=== PATIENT | female | born 1950 | race Caucasian/White ===

== ENCOUNTER 2025-01-20 13:57 | Outpatient (AMB) | payer OTHER, SELFPAY ==
--- OUTSIDE RECORDS SUMMARY | 2025-01-19 13:30 | XMS_ITS | Encounter Summary ---
Author Organization [facility] Address [address] [place] [address] Care Team Providers Care Animal Skinner Name Role Phone Eve German ASSISTANT WOMENS VOLLEYBALL COACH Primary Care Provider [phone] Encounter Details Date Type Department Care Team (Late st Contact Info) Description 01/19/2025 1:30 PM EST [facility] [address] [place] [address] Breanna Jaquez PTA Social History Tobacco Use Types Packs/Day Years Used Date Smoking Tobacco: Never Smokeless Tobacco: Never Comments:Never smoked tobacc o Alcohol Use Standard Drinks/Week Comments Not Currently 0 (1 standard drink = 0.6 oz pur e alcohol) Hx of alcohol use. Education Answer Date Recorded What is the highest level of school you have completed or the highest degree you have received? High school graduate 08/08/2024 Comments Unknown Sex and Gender Information Value Date Recorded Sex Assigned at Not on file Legal Sex Female 5:11 PM EST Gender Identity Not on file Sexual Orientation Not on file documented as of this encounter Progress Notes * Breanna Jaquez PTA - 01/19/2025 1:30 PM EST Par engaged in staff led exercise group to improve quality of life through movement & social interaction with peers. Focus on strengthening and balance act to reduce risk for falls documented in this encounter Plan of Treatment Upcoming Encounters Date Type Department Care Team (Late st Contact Info) Description 01/27/2025 10:00 AM EST PACE Home Care / P[facility] Home Visit [facility] [place] [facility] [address] [place] [phone] Sisi [place] 02/03/2025 10:00 AM EST PACE Home Care / PACE Home Visit Vivien [facility] [place] [facility] [address] [place] [phone] Sisi Janet 02/10/2025 10:00 AM EST PACE Home Care / PACE Home Visit Vivien [facility] [place] [facility] [address] [place] [phone] Sisi [place] 02/12/2025 1:00 PM EST Clinical Support Vivien DAVENPORT MA [address] [place] [phone] 02/17/2025 10:00 AM EST PACE Home Care / PACE Home Visit Vivien [facility] [place] [facility] [address] [place] [phone] Sisi [place] 02/19/2025 10:10 AM EST Clinical Support Vivien DAVENPORT MA [address] [place] [phone] 02/24/2025 10:00 AM EST PACE Home Care / PACE Home Visit Vivien [facility] [place] [facility] [address] [place] [phone] Sisi [place] 03/03/2025 10:00 AM EST PACE Home Care / PACE Home Visit Vivien [facility] [place] [facility] [address] [place] [phone] Sisi [place] 03/10/2025 10:00 AM EST PACE Home Care / PACE Home Visit Vivien [facility] [place] [facility] [address] [place] [phone] Janet Laird 03/17/2025 10:00 AM EST PACE Home Care / PACE Home Visit Vivien [facility] [place] [facility] [address] [place] [address] NeetajessicaJanet 05/14/2025 9:00 AM EST Clinical Support Vivien DAVENPORT [place] [address] [place] [address] documented as of this encounter Visit Diagnoses Not on filedocumented in this encounter Additional Health Concerns Assessment Noted Time PHQ-9 Depression Total Score: 3 09/10/19 10:35 AM EDT documented as of this encounter Care Teams Animal Skinner Relationship Specialty Start Date End Date Eve German NP [address] [address] PCP - General Family Medicine 04/12/24 documented as of this encounter
--- OUTSIDE RECORDS SUMMARY | 2025-01-20 14:10 | XMS_ITS | Encounter Summary ---
Author Organization [facility] Address [address] [place] [address] Care Team Providers Care Co Teacher Name Role Phone Eve German LONG DISTANCE OPERATOR Primary Care Provider [phone] Reason for Visit * Consultation (Routine) - Authorized Specialty Diagnoses / Procedures Referred By Giuseppe zepeda Referred To Contact Neurology Diagnoses Hyponatremia Eve German NP 200 [facility] [address] [place] [address] Phone: tel: fax: [facility] [address] Phone: tel: Referral ID Status Reason Start Date Expiration Date Visits Requested Visits Authorized [id number] Authorized Specialty Services Required 11/14/2024 11/14/2025 1 1 Encounter Details Date Type Department Care Team (Late st Contact Info) Description 01/20/2025 2:10 PM EST PACE External Visit [facility] [place] [address] [place] [address] Arrived Social History Tobacco Use Types Packs/Day Years [...] on file documented as of this encounter Plan of Treatment Upcoming Encounters Date Type Department Care Team (Late st Contact Info) Description 01/27/2025 10:00 AM EST PACE Home Care / PACE Home Visit Vivien [facility] [place] [facility] [address] [place] [phone] Faustino Lairdah 02/03/2025 10:00 AM EST PACE Home Care / PACE Home Visit Vivien [facility] [place] [facility] [address] [place] [phone] Faustnio Lairdah 02/10/2025 10:00 AM EST PACE Home Care / PACE Home Visit Vivien [facility] [place] [facility] [address] [place] [phone] Sisi Janet 02/12/2025 1:00 PM EST Clinical Support Vivien DAVENPORT [place] [address] [place] [phone] 02/17/2025 10:00 AM EST PACE Home Care / PACE Home Visit Vivien [facility] [place] [facility] [address] [place] [phone] Janet Laird 02/19/2025 10:10 AM EST Clinical Support Vivien DAVENPORT [place] [address] [place] [phone] 02/24/2025 10:00 AM EST PACE Home Care / PACE Home Visit [facility] [address] [place] [phone] Sisi Janet 03/03/2025 10:00 AM EST PACE Home Care / PACE Home Visit Vivien [facility] [place] [facility] [address] [place] [phone] Sisi Janet 03/10/2025 10:00 AM EST PACE Home Care / PACE Home Visit Vivien [facility] [place] [facility] [address] [place] [address] Janet Laird 03/17/2025 10:00 AM EST PACE Home Care / PACE Home Visit Vivien [facility] [place] [facility] [address] [place] [phone] Jante Laird 05/14/2025 9:00 AM EST Clinical Support Vivien DAVENPORT [place] [address] [place] [address] documented as of this encounter Visit Diagnoses Not on filedocumented in this encounter Orders Outpatient Referral Count Last Ordered Date Fir st Ordered Date AMB REFERRAL TO NEUROLOGY 01/20/2025 documented in this encounter Additional Health Concerns Assessment Noted Time PHQ-9 Depression Total Score: 3 09/10/19 10:35 AM EDT documented as of this encounter Care Teams Co Teacher Relationship Specialty Start Date End Date Eve German NP [address] [place] [address] 1 [place] [address] PCP - General Family Medicine 04/12/24 documented as of this encounter
--- NOTE | 2025-01-20 14:18 | MHC.OFFVIS ---
Intake Visit Reasons: Hyponatremia HPI Comments Details: The patient is a 74-year-old female presenting with a follow-up for seizure management and neurological evaluation. 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 The seizure was atypical, exhibiting confusion and inability to rise from a position, as opposed to overt convulsions. Her antiepileptic treatment regimen appears effective in managing seizure activity, with minimal occurrences of minor seizures since initiation. She also reports cognitive issues, which have become more evident with advancing age, and are partially attributed to historical brain trauma evident on MRI. There is an associated history of a childhood clavicle fracture requiring surgical intervention. The patient recently experienced fluctuations in sodium levels, likely due to her antiepileptic medication. While her serum sodium had decreased, recent laboratory values indicate a normalization back to 140 mmol/L. Review of Systems Narrative Constitutional:?No fever, chills, fatigue, weight loss, or night sweats. HEENT:?No headache, vision changes, hearing loss, nasal congestion, sore throat. Cardiovascular:?No chest pain, palpitations, orthopnea, PND, or leg swelling. Respiratory:?No cough, shortness of breath, wheezing, or hemoptysis. Gastrointestinal:?No nausea, vomiting, abdominal pain, diarrhea, or constipation. Genitourinary:? Complain of frequent urination. Musculoskeletal:?No joint pain, stiffness, weakness, or muscle aches. Neurological:? Complain of confusion, memory problems, and seizures. Psychiatric:?No anxiety, depression, mood swings, sleep disturbance, or hallucinations. Endocrine:?No heat/cold intolerance, polydipsia, polyuria, or hair/skin changes. Hematologic/Lymphatic:?No easy bruising, bleeding, or lymphadenopathy. Integumentary (Skin):?No rash, lesions, itching, or color changes. Allergic/Immunologic:?No seasonal allergies, hives, or recurrent infections. Physical Exam Neuro Other: Mental Status: She is alert and awake able to answer questions but could not tell me where she lived other than the city. She did not know where she was and what floor she was on. Cranial Nerves: CN II: Visual baltazar full to confrontation, visual acuity intact. CN III, IV, : Pupils equal, round, reactive to light and accommodation. Extraocular movements are normal. CN V: Facial sensation is normal. CN VII: Facial movements symmetrical. CN VIII: Hearing intact to bedside conversation is normal. CN IX, X: Palate elevates symmetrically. CN XI: Shoulder shrug and head turn symmetrical. CN XII: Tongue midline without atrophy or fasciculations. Motor: Slow and cautious with a walker. Extrapyramidal: Full facial expressions and blinking. No rigidity. Movements are appropriate with no tremor or abnormality. Speech: Normal; no dysarthria or tremor. Assessment & Plan Assessment & Plan (1) Seizure disorder: Comment: MRI brain WO at [facility] in 2018: Chronic b/l paramedian parietal area encephalomalacia Code(s): G40.909 - Epilepsy, unspecified, not intractable, without status epilepticus Category: Medical (2) Encephalomalacia on imaging study: Code(s): G93.89 - Other specified disorders of brain Category: Medical (3) Chronic static encephalopathy: Code(s): G93.49 - Other encephalopathy Category: Medical Plan Impression: 1. 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 Distinct area of bilateral paramedian or parasagittal biparietal encephalomalacia, probably from contusion. 3. Seizure disorder, probably comprising complex partial seizures 4. 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 Continue oxcarbamazepine 600 mg twice a day 2. EEG 3. MRI brain WO to r/o NPH type pathology Orders: Orders EEG Routine Today G40.909 - Epilepsy, unspecified, not intractable, without status epilepticus Basic Metabolic Panel Today G40.909 - Epilepsy, unspecified, not intractable, without status epilepticus MR head/brain wo con Today G40.909 - Epilepsy, unspecified, not intractable, without status epilepticus, G93.89 - Other specified disorders of brain Coding Level of Care Code New Pt Level 4 (48838) Global (70624) Diagnoses Seizure disorder G40.909 Encephalomalacia on imaging study G93.89 Chronic static encephalopathy G93.49 Time Spent (min) 45
--- OUTSIDE RECORDS SUMMARY | 2025-01-20 15:32 | XMS_ITS | Patient Health Record ---
Author Organization [facility] [place] Address [address] [facility] [address] [place] [address] Support Name Relationship Address Phone MARIUM CLAY Guarantor Unknown [phone] Reason For Referral No Information Plan Of Treatment No Information Insurance Providers Payer Name Payer Address Payer Phone Subscriber Number Group Number Insured Name Patient Relationship to Insured Coverage Start Date Coverage End Date A [employer] [address] [place] [address] [id number] MARIUM CLAY Self - patient is the insured [employer] [address] [place] [address] [id number] MARIUM CLAY Self - patient is the insured
--- OUTSIDE RECORDS SUMMARY | 2025-01-20 15:32 | XMS_ITS | Encounter Summary ---
Author Organization [facility] Address [address] [place] [address] Care Team Providers Care Manager Process Name Role Phone Eve German VICE PRESIDENT TAX Primary Care Provider [phone] Encounter Details Date Type Department Care Team (Late st Contact Info) Description 07/22/2024 Health Home Core Service [facility] [place] [facility] [address] [place] [phone] Marian Savage RN Social History Tobacco Use Types Packs/Day Years Used Date Smoking Tobacco: Never Comments:Never smoked tobacc o Alcohol Use Standard Drinks/Week Comments Not Currently 0 (1 standard drink = 0.6 oz pur e alcohol) Hx of alcohol use. Comments Unknown Sex and Gender Information Value [...] Care / PACE Home Visit Vivien DAVENPORT [facility] [address] [place] [phone] Janet Laird 02/03/2025 10:00 AM EST PACE Home Care / PACE Home Visit Vivien DAV[facility]PORT [facility] [address] [place] [phone] [facility] 02/10/2025 10:00 AM EST PACE Home Care / PACE Home Visit Vivien DAV[facility] [place] [facility] [address] [place] [phone] [facility] 02/12/2025 1:00 PM EST Clinical Support Vivien DAVENPORT MA [address] [place] [phone] 02/17/2025 10:00 AM EST PACE Home Care / PACE Home Visit Vivien [facility] [place] [facility] [address] [place] [phone] [facility] 02/19/2025 10:10 AM EST Clinical Support Vivien DAVENPORT MA [address] [place] [phone] 02/24/2025 10:00 AM EST PACE Home Care / PACE Home Visit Vivien [facility] [place] [facility] [address] [place] [phone] [facility] 03/03/2025 10:00 AM EST PACE Home Care / PACE Home Visit Vivien [facility] [place] [facility] [address] [place] [phone] [facility] 03/10/2025 10:00 AM EST PACE Home Care / PACE Home Visit Vivien [facility] [place] [facility] [address] [place] [phone] [facility] 03/17/2025 10:00 AM EST PACE Home Care / PACE Home Visit Vivien [facility] [place] [facility] [address] [place] [phone] [facility] 05/14/2025 9:00 AM EST Clinical Support Vivien DAVENPORT MA [address] [place] [phone] documented as of this encounter Visit Diagnoses Not on filedocumented in this encounter Care Teams Manager Process Relationship Specialty Start Date End Date Eve German NP [address] [address] PCP - General Family Medicine 04/12/24 documented as of this encounter
--- OUTSIDE RECORDS SUMMARY | 2025-01-20 15:32 | XMS_ITS ---
Author Organization [facility] [address] [facility] Address [address] [place] [address] Phone Care Team Providers Care Bone Char Kiln Tender Name Role Phone Eve German ACIDIZER Primary Care Provider [phone] [facility] Status:Enrolled (Active) Start date:05/10/2024 Related program episode:Program of All-Inclusive Care for the Elderly (Active) Case Team Name Relationship Phone Eve German ACIDIZER(Responsible Staff) Nurse Prac titioner [phone] Continued Care and Services Coordination
--- OUTSIDE RECORDS SUMMARY | 2025-01-20 15:32 | XMS_ITS ---
Author Organization [facility] [address] [facility] Address [address] [place] [address] Phone Care Team Providers Care Nanotechnology Engineering Technologist Name Role Phone Eve German REPRODUCTIVE ENDOCRINOLOGIST Primary Care Provider [phone] Program of All-Inclusive Care for the Elderly Status:Enrolled (Active) Start date:11/10/2022 Enrollment date:11/10/2022 Related social drivers of health:Housing Instability, Financial Risk, Transportation, Social Isolation, Food Risk Related service episodes:[facility] (Active) Overview This episode will track PACE documentation. Case Team Name Relationship Phone Anais Guan Recreational Therapist Carlota Royal RN Cartography Professor Janet Worthy RN Cartography Professor Francois Gonzalez OT Occupational Therapist Gregory Santoyo RD Dietitian Robert Alcaraz PT Physical Therapist Hunter Sahu WIDE AREA NETWORK ENGINEER R&D Engineer Meme Lane RN Cartography Professor Aziza Fitzgerald R&D Engineer Christelle Mancia [facility] R&D Engineer Arnold Santos Spiritual Care Anne De Santiago OT Occupational Therapist Enma Duckworth TIE UP WORKER R&D Engineer Sj Moser PT Physical Therapist Yenni Coombs RN Registered Nurse Tess Saenz MD Primary Care Provider [phone] Continued Care and Services Coordination
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
--- OUTSIDE RECORDS SUMMARY | 2025-01-20 15:33 | XMS_ITS | Encounter Summary ---
Author Organization [facility] Address [address] [place] [address] Care Team Providers Care Biomedical Equipment Specialist Name Role Phone Eve German MACHINING SUPERVISOR Primary Care Provider [phone] Encounter Details Date Type Department Care Team (Late st Contact Info) Description 03/21/2024 Telephone Gastroenterology - [address] [place] [address] Keiry Flores MA Social History Tobacco Use Types Packs/Day Years Used Date Smoking Tobacco: Never Alcohol Use Standard Drinks/Week Comments Not Currently 0 (1 standard drink = 0.6 oz pur e alcohol) Comments Unknown Sex and Gender Information Value Date Recorded Sex Assigned at Not on file Legal Sex Female 5:11 PM EST Gender Identity Not on file Sexual Orientation Not on file documented as of this encounter Progress Notes * Keiry Flores MA - 03/21/2024 9:25 AM EST Pt's called with the name of pharmacy : [facility]: [phone], for her mesalamine 90 day supply documented in this encounter Plan of Treatment Upcoming Encounters Date Type Department Care Team (Late st Contact Info) Description 01/27/2025 10:00 AM EST PACE Home Care / PACE Home Visit Vivien [facility] [place] [facility] [address] [place] [address] Sisi [place] 02/03/2025 10:00 AM EST PACE Home Care / PACE Home Visit Vivien [facility] [place] [facility] [address] [place] [address] Sisi [place] 02/10/2025 10:00 AM EST PACE Home Care / PACE Home Visit Vivien [facility] [place] [facility] [address] [place] [address] Sisi [place] 02/12/2025 1:00 PM EST Clinical Support Vivien DAVENPORT [place] [address] [place] [address] 02/17/2025 10:00 AM EST PACE Home Care / PACE Home Visit Vivien [facility] [place] [facility] [address] [place] [phone] Sisi [place] 02/19/2025 10:10 AM EST Clinical Support Vivien DAVENPORT [place] [address] [place] [address] 02/24/2025 10:00 AM EST PACE Home Care / PACE Home Visit Vivien [facility] [place] [facility] [address] [place] [address] Sisi [place] 03/03/2025 10:00 AM EST PACE Home Care / PACE Home Visit Vivien [facility] [place] [facility] [address] [place] [address] Sisi [place] 03/10/2025 10:00 AM EST PACE Home Care / P[facility] Home Visit [facility] [place] [facility] [address] [place] [phone] Sisi [place] 03/17/2025 10:00 AM EST PACE Home Care / P[facility] Home Visit [facility] [place] [facility] [address] [place] [phone] Sisi Janet 05/14/2025 9:00 AM EST Clinical Support [facility] [address] [place] [address] documented as of this encounter Visit Diagnoses Not on filedocumented in this encounter Care Teams Biomedical Equipment Specialist Relationship Specialty Start Date End Date Eve German NP [address] [address] PCP - General Family Medicine 04/12/24 documented as of this encounter
--- OUTSIDE RECORDS SUMMARY | 2025-01-20 15:33 | XMS_ITS | Clinical Summary ---
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 Atrium Left atrium cavity size is normal. Right Atrium Right atrium cavity is normal. IVC/SVC Inferior vena cava structure is normal. RA pressures is estimated to be 3 mmHg (IVC diameter <21 mm and decreases >50% during inspiration). Mitral Valve The leaflets are mildly thickened. There is mild annular calcification. There is trace regurgitation. There is no evidence of mitral valve stenosis. Tricuspid Valve Tricuspid valve structure is normal. There is trace regurgitation. The right ventricular systolic pressure is normal. Aortic Valve The aortic valve is trileaflet. The leaflets are mildly thickened. There is no regurgitation or stenosis. Pulmonic Valve There is no regurgitation or stenosis. Ascending Aorta The ascending aorta is (3.6 cm). Pericardium Pericardium appears normal. There is no pericardial effusion. Study Details Overall the study quality was adequate. us Christiano German NP CV ECHO PROCEDURES Final Resu lt * JOSE SCREENING DIGITAL (09/25/2023 2:50 PM EDT) Anatomical Region Laterality Modality Mammography 09/25/2023 1:44 PM EDT Narrative 09/25/2023 2:50 PM EDT [facility] Diagnostic Imaging Department [address] [place] [id number] Patient: OBEDDENAE D.O.B./Age/Sex: 1950 - 73 - F Unit#: [id number] Location/Status: SPDIMAM/REG CLI Mnemonic/Ordering Site: [facility] Ordering Physician: MAKAYLA SAUCEDO MD Jose Screening Digital - 09/25/23 - [id number] Report Status:Signed EXAM: [facility] Screening Digital EXAM DATE AND TIME: 09/25/2023 2:05 PM HISTORY: Screening. COMPARISON: 11/08/21, 12/05/18, 04/23/17 ([facility], [place], [place]) TECHNIQUE: Bilateral digital breast tomosynthesis was performed in the CC and MLO projections. Computer aided detection with Spotlight.fm 3D 3.1 was employed. TISSUE DENSITY: b. There are scattered areas of fibroglandular density. FINDINGS: Finding and coarse heterogeneous microcalcifications are scattered and occur in groups bilaterally, showing no significant change. No suspicious masses are seen. There is no architectural distortion. Vascular calcification is present. The skin is unremarkable. IMPRESSION: Stable mammographic appearance of the breasts. No evidence of malignancy is seen. A negative mammogram in the presence of a clinically suspicious palpable abnormality does not preclude the possibility of malignancy or alter the indications for biopsy. BI-RADS: Category 2: Benign RECOMMENDATION(S): 1: Routine screening mammogram BILATERAL in 1 year. Dictating Physician: ANALI CHANDLER MD Electronically Signed by: ANALI CHANDLER MD Dic Date/Time: 09/25/23 1449 Sign date/Time: 09/25/23 1450 Procedure Note Anali Chandler MD - 12/26/2023 [facility] Diagnostic Imaging Department [address] [place] [address] Patient: DENAE CLAY./Age/Sex: 1950 - 73 - F Unit#: [id number] Location/Status: SPDIMAM/REG CLI Mnemonic/Ordering Site: [facility] Ordering Physician: MAKAYLA SAUCEDO MD [facility] Screening Digital - 09/25/23 - [id number] Report Status:Signed EXAM: [facility] Screening Digital EXAM DATE AND TIME: 09/25/2023 2:05 PM HISTORY: Screening. COMPARISON: 11/08/21, 12/05/18, 04/23/17 ([place], [place]) TECHNIQUE: Bilateral digital breast tomosynthesis was performed in the CCand MLO projections. Computer aided detection with Spotlight.fm 3D 3.1was employed. TISSUE DENSITY: b. There are scattered areas of fibroglandular density. FINDINGS: Finding and coarse heterogeneous microcalcifications are scattered andoccur in groups bilaterally, showing no significant change. No suspicious massesare seen. There is no architectural distortion. Vascular calcification is present. The skin is unremarkable. IMPRESSION: Stable mammographic appearance of the breasts. No evidence of malignancyis seen. A negative mammogram in the presence of a clinically suspicious palpable abnormality does not preclude the possibility of malignancy or alter the indications for biopsy. BI-RADS: Category 2: Benign RECOMMENDATION(S): 1: Routine screening mammogram BILATERAL in 1 year. Dictating Physician: ANALI CHANDLER MD Electronically Signed by: ANALI CHANDLER MD Dic Date/Time: 09/25/23 1449 Sign date/Time: 09/25/23 1450 Makayla Saucedo MD IMG BI PROCEDURES Final Re sult * Lipid panel (09/03/2023) LDL/HDL Ratio 3 <=5 Triglycerides 96 <=150 mg/dL Cholesterol 174 <=200 mg/dL HDL 70 >=50 mg/dL LDL Cholesterol 85 <=100 mg/dL Blood Venous blood specimen / Unknown us Historical Provider LAB BLOOD ORDERABLES Teena l Result from Last 3 Months or Most Recently Relevant to Health Maintenance Insurance [employer] * Guarantor: PACE Account Type Relation to Patient Date of Phone Billing Address PACE DAVID [address] HEALTH Advance Directives Documents on File Type Date Recorded 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 Advance Directives and Living Will 12/17/2024 9:31 AM 12/09/2024 HEALTH CAR E PROXY Advance Directives and Living Will 04/02/2024 3:18 PM ADV DIR-Healthcare Proxy [id number] Advance Directives and Living Will 04/02/2024 3:18 PM ADV DIR-MOLST [id number] Health Care Decision (hx) 01/24/2023 HEALTH CARE PROXY Health Care Decision (hx) 01/24/2023 HEALTH CARE PROXY Health Care Decision (hx) 12/22/2020 ADVANCE DIRECTIVE Health Care Decision (hx) 12/22/2020 ADVANCE DIRECTIVE Health Care Decision (hx) 12/22/2020 ADVANCE DIRECTIVE Health Care Decision (hx) 12/17/2020 ADVANCE DIRECTIVE Health Care Decision (hx) 12/17/2020 ADVANCE DIRECTIVE Health Care Decision (hx) 12/17/2020 ADVANCE DIRECTIVE * Full Code - Confirmed (Latest Code Status on File) Date Activated Date Inactivated Comments 05/01/2024 4:01 PM This code stat us was ascertained in the following way: Code status discussion: per living will or healthcare instructions To update the patient's code status, place a code status order. Do not modify or discontinue any currently active code status orders. Care Teams Precast Concrete Ironworker Relationship Specialty Start Date End Date Christiano German NP [address] [place] [address] PCP - General Family Medicine 04/12/24
== END 2025-01-20 14:38 | disposition home or self-care (01) ==
LOC: HO.HSM 13:58
PROVIDERS: PCP Nurse Practitioner Family; Visit Provider Psychiatry & Neurology Neurology
DX: G40.909 Epilepsy, unspecified, not intractable, without status epilepticus (principal); G93.89 Other specified disorders of brain; G93.49 Other encephalopathy
CPT/HCPCS: 99204; G2211

== ENCOUNTER → 2025-01-20 13:57 | Outpatient (BNVA) | payer OTHER, SELFPAY | PROVIDERS: PCP Nurse Practitioner Family; Visit Provider Psychiatry & Neurology Neurology | DX: G40.909 Epilepsy, unspecified, not intractable, without status epilepticus (principal); G93.89 Other specified disorders of brain; G93.49 Other encephalopathy | CPT/HCPCS: 99202 ==

== ENCOUNTER 2025-02-26 10:16 | Outpatient (REF) | payer OTHER, SELFPAY ==
--- OUTSIDE RECORDS SUMMARY | 2025-02-23 11:00 | XMS_ITS | Encounter Summary ---
Author Organization [facility] Address [address] [place] [address] Care Team Providers Care Student Development Coordinator Name Role Phone Eve German TEXTILE EXAMINER Primary Care Provider [phone] Encounter Details Date Type Department Care Team (Late st Contact Info) Description 02/23/2025 11:00 AM EST Treatment [facility] [address] [place] [address] Breanna Jaquez PTA Social History [...] Progress Notes * Breanna Jaquez PTA - 02/23/2025 11:00 AM EST Par seen this date to measure feet for supportive shoe gear with gel or memory foam inserts as recommended by recent podiatry appt. Par measuring size 10.5 wide. Orthofeet Relay style shoe ordered this date. Currently par is wearing Biofit shoe size 10 XX-wide until new shoes are obtained. Par denied any discomfort with such. documented in this encounter Plan of Treatment Upcoming Encounters Date Type Department Care Team (Late st Contact Info) Description 03/03/2025 10:00 AM EST P[facility] Home Care / PACE Home Visit Vivien [facility] [place] [facility] [address] [place] [phone] [employer] 03/03/2025 2:20 PM EST Clinical Support Vivien DAVENPORT [place] [address] [place] [phone] 03/10/2025 10:00 AM EST PACE Home Care / PACE Home Visit Vivien [facility] [place] [facility] [address] [place] [phone] [employer] 03/17/2025 10:00 AM EST PACE Home Care / PACE Home Visit Vivien DAV[facility] [place] [facility] [address] [place] [phone] [employer] 03/24/2025 10:00 AM EST PACE Home Care / PACE Home Visit Vivien [facility] [place] [facility] [address] [place] [phone] [employer] 03/31/2025 10:00 AM EST PACE Home Care / PACE Home Visit Vivien DAV[facility]PORT [place] [facility] [address] [place] [phone] [facility] 04/07/2025 10:00 AM EST PACE Home Care / PACE Home Visit Vivien DAV[facility]PORT [place] [facility] [address] [place] [phone] [employer] 04/14/2025 10:00 AM EST PACE Home Care / PACE Home Visit Vivien DAV[facility] [place] [facility] [address] [place] [phone] [facility] Janet 04/21/2025 10:00 AM EST PACE Home Care / PACE Home Visit Vivien DAV[facility] [place] [facility] [address] [place] [phone] Janet Laird 05/14/2025 9:00 AM EST Clinical Support Vivien DAVENPORT [place] [address] [place] [phone] 10/16/2025 11:20 AM EDT Office Visit Gastroenterology - [address] [facility] [address] [place] [phone] Carmen Alaniz NP [address] [facility] [address] [address] documented as of this encounter Visit Diagnoses Not on filedocumented in this encounter Additional Health Concerns Assessment Noted Time PHQ-9 Depression Total Score: 3 09/10/19 10:35 AM EDT documented as of this encounter Care Teams Student Development Coordinator Relationship Specialty Start Date End Date Eve German NP 200 [facility] 1 [place] [address] PCP - General Family Medicine 04/12/24 documented as of this encounter
--- OUTSIDE RECORDS SUMMARY | 2025-02-23 13:30 | XMS_ITS | Encounter Summary ---
Author Organization [facility] Address [address] [place] [address] Care Team Providers Care Sound Engineer Audio Control Name Role Phone Eve German LIFE SKILLS COORDINATOR Primary Care Provider [phone] Encounter Details Date Type Department Care Team (Late st Contact Info) Description 02/23/2025 1:30 PM EST [facility] [address] [place] [address] Breanna Jaquez PTA Social History [...] Notes * Breanna Jaquez PTA - 02/23/2025 1:30 PM EST Par engaged in staff [...] [facility] [address] [place] [address] Faustino Lairdah 03/03/2025 2:20 PM EST Clinical Support Vivien DAVENPORT [place] [address] [place] [address] 03/10/2025 10:00 AM EST PACE Home Care / PACE Home Visit Vivien DAV[facility] [facility] [address] [place] [phone] [facility] Janet 03/17/2025 10:00 AM EST PACE Home Care / PACE Home Visit Vivien DAV[facility] [facility] [address] [place] [phone] [facility] Janet 03/24/2025 10:00 AM EST PACE Home Care / PACE Home Visit Vivien [facility] [facility] [address] [place] [phone] [facility] Janet 03/31/2025 10:00 AM EST PACE Home Care / PACE Home Visit Vivien [facility] [facility] [address] [place] [phone] [facility] Janet 04/07/2025 10:00 AM EST PACE Home Care / [facility] Home Visit [facility] [place] [facility] [address] [place] [phone] [facility] Janet 04/14/2025 10:00 AM EST P[facility] Home Care / [facility] Home Visit [facility] [place] [facility] [address] [place] [phone] [facility] Janet 04/21/2025 10:00 AM EST PACE Home Care / PACE Home Visit Vivien [facility] [facility] [address] [place] [phone] Janet Laird 05/14/2025 9:00 AM EST Clinical Support Vivien DAVENPORT [place] [address] [place] [address] 10/16/2025 11:20 AM EDT Office Visit Gastroenterology - [address] [phone] Carmen Alaniz NP [address] [address] documented as of this encounter Visit Diagnoses Not on filedocumented in this encounter Additional Health Concerns Assessment Noted Time PHQ-9 Depression Total Score: 3 09/10/19 10:35 AM EDT documented as of this encounter Care Teams Sound Engineer Audio Control Relationship Specialty Start Date End Date Eve German NP [address] [place] [address] PCP - General Family Medicine 04/12/24 documented as of this encounter
--- OUTSIDE RECORDS SUMMARY | 2025-02-26 10:30 | XMS_ITS | Encounter Summary ---
Author Organization [facility] Address [address] [place] [address] Care Team Providers Care Roughener Name Role Phone Eve German PROSPECTING DRILLER Primary Care Provider [phone] Reason for Visit * Imaging (Routine) - Authorized Specialty Diagnoses / Procedures Referred By Giuseppe zepeda Referred To Contact Neurology Diagnoses EEG Procedures EXTERNAL VISIT Eve German NP 200 [facility] [address] [place] [address] Phone: tel: fax: [facility] [address] Phone: tel: Referral ID Status Reason Start Date Expiration Date V isits Requested Visits Authorized [id number] Authorized 02/26/2025 02/26/2026 1 1 Encounter Details Date Type Department Care Team (Late st Contact Info) Description 02/26/2025 10:30 AM EST PACE External Visit [facility] [place] [address] [place] [address] Social History Tobacco Use Types Packs/Day Years [...] [place] [facility] [address] [place] [phone] Faustino Lairdah 03/03/2025 2:20 PM EST Clinical Support Vivien DAVENPORT [place] [address] [place] [phone] 03/10/2025 10:00 AM EST PACE Home Care / PACE Home Visit Vivien DAV[facility] [facility] [address] [place] [phone] [facility] Janet 03/17/2025 10:00 AM EST PACE Home Care / PACE Home Visit Vivien DAV[facility] [facility] [address] [place] [phone] [facility] Janet 03/24/2025 10:00 AM EST PACE Home Care / PACE Home Visit Vivien DAV[facility] [facility] [address] [place] [phone] [facility] 03/31/2025 10:00 AM EST PACE Home Care / PACE Home Visit Vivien DAV[facility]PORT [place] [facility] [address] [place] [phone] [facility] [place] 04/07/2025 10:00 AM EST PACE Home Care / [facility] Home Visit [facility] [place] [facility] [address] [place] [phone] [facility] Janet 04/14/2025 10:00 AM EST PACE Home Care / PACE Home Visit Vivien DAV[facility] [place] [facility] [address] [place] [phone] [facility] Janet 04/21/2025 10:00 AM EST PACE Home Care / PACE Home Visit Vivien DAV[facility] [facility] [address] [place] [phone] [facility] [place] 05/14/2025 9:00 AM EST Clinical Support Vivien DAVENPORT [place] [address] [place] [phone] 10/16/2025 11:20 AM EDT Office Visit Gastroenterology - [address] [place] [phone] Carmen Alaniz NP 299 [facility] [address] [place] [address] documented as of this encounter Visit Diagnoses Not on filedocumented in this encounter Additional Health Concerns Assessment Noted Time PHQ-9 Depression Total Score: 3 09/10/19 10:35 AM EDT documented as of this encounter Care Teams Roughener Relationship Specialty Start Date End Date Eve German NP 200 [facility] 1 [place] [address] PCP - General Family Medicine 04/12/24 documented as of this encounter
--- NOTE | 2025-02-26 11:45 | EEG_ITS ---
History: The patient is a 74-year-old female presenting with a follow-up for seizure management and neurological evaluation. 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 The seizure was atypical, exhibiting confusion and inability to rise from a position, as opposed to overt convulsions. Her antiepileptic treatment regimen appears effective in managing seizure activity, with minimal occurrences of minor seizures since initiation. She also reports cognitive issues, which have become more evident with advancing age, and are partially attributed to historical brain trauma evident on MRI. There is an associated history of a childhood clavicle fracture requiring surgical intervention. Medication: no list available Technical Description Photic Stimulation: completed Hyperventilation: omitted Behavioral State: pleasant, cooperative State of Consciousness: awake and sleep Skull Defect: none Sedation: none Handedness: right Duration: 32 min 14 sec Deliverer Food Comments: Last Meal: 02/26/25 Time / date of last symptom: unknown Description: This is a 16 channel EEG with an EKG lead. Patient is reported awake and asleep during the tracing. Background EEG rhythm is low to medium amplitude theta to delta range with no obvious asymmetry or paroxysmal tendency. Photic stimulation does not produce any significant abnormality. Hyperventilation is not performed. Cardiac lead did not reveal any significant abnormality. No definite sharp wave spikes or paroxysmal tendency noted. Impression: Generalized slowing with no epileptic discharges. MTDD
--- OUTSIDE RECORDS SUMMARY | 2025-02-26 12:40 | XMS_ITS | Patient Health Record ---
Author Organization [facility] Brittany Avalos Address [address] [place] [address] Care Team Providers Care Commercial Portfolio Manager Name Role Phone Fran Merritt Primary Care Provider Maurice Mayen Unavailable [phone] Allergies Allergen (clinical drug ingredient) Drug/Non Drug [...] primary osteoarthritis of the ankle and/or foot (531835641) Primary osteoarthriti s, right ankle and foot (M19.071) Active confirmed Problem Non-pressure chronic ulcer of other part of right foot limited to breakdown of skin (L97.511) Active confirmed Problem Acquired hammer toe of right foot (2386341864898713) Other hammer toe(s) (acquired), right foot (M20.41) Active confirmed Problem Acquired hammer toe of left foot (4323719214021080) Other hammer toe(s) (acquired), left foot (M20.42) Active confirmed Plan Of Treatment Pending Test Test Name Order Date X ray : Foot, right 3V 10/24/2022 Insurance Providers Payer Name Payer Address Payer Phone Subscriber Number Group Number Insured Name Patient Relationship to Insured Coverage Start Date Coverage End Date Medicare National [employer] [address] [place] [address] [id number] Denae Mooney Self - patient is the insured [employer] [facility] [address] [place] [address] [phone] [id number] Denae Mooney Self - patient is the insured Medical (General) History Medical History History ICD Code Chicken pox Crohns disease Epilepsy High blood pressure Measles 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
--- OUTSIDE RECORDS SUMMARY | 2025-02-26 12:40 | XMS_ITS ---
Author Organization [facility] 299 [facility] Address [address] [place] [address] Phone Care Team Providers Care Financial Dealers Name Role Phone Eve German ROAD MACHINE RUNNER Primary Care Provider [phone] [facility] Status:Enrolled (Active) Start date:05/10/2024 Related program episode:Program of All-Inclusive Care for the Elderly (Active) Case Team Name Relationship Phone Eve German ROAD MACHINE RUNNER(Responsible Staff) Nurse Prac titioner [phone] Continued Care and Services Coordination
--- OUTSIDE RECORDS SUMMARY | 2025-02-26 12:40 | XMS_ITS | Encounter Summary ---
Author Organization [facility] Address [address] [place] [address] Care Team Providers Care Phosphorus Processing Supervisor Name Role Phone Eve German DEALER CARD ROOM Primary Care Provider [phone] Encounter Details Date Type Department Care Team (Late st Contact Info) Description 07/22/2024 Health Home Core Service Vivien [facility] [address] [place] [address] Marian Savage RN Social History Tobacco Use [...] P[facility] Home Care / PACE Home Visit Claribelherbert ISSAC PAUL [facility] [address] [place] [phone] Janet Laird 03/03/2025 2:20 PM EST Clinical Support Vivien ISSAC PAUL [address] [place] [phone] 03/10/2025 10:00 AM EST [facility] Home Care / PACE Home Visit [facility]ien [facility] [address] [place] [phone] [place] 03/17/2025 10:00 AM EST [facility] Home Care / PACE Home Visit [facility]ien [facility] [place] [facility] [address] [place] [phone] [place] 03/24/2025 10:00 AM EST P[facility] Home Care / PACE Home Visit [facility] [place] [facility] [address] [place] [phone] [place] 03/31/2025 10:00 AM EST PACE Home Care / PACE Home Visit Vivien DAVENPORT MA [facility] [address] [place] [phone] [place] 04/07/2025 10:00 AM EST P[facility] Home Care / PACE Home Visit Vivien DAVENPORT [facility] [address] [place] [phone] [place] 04/14/2025 10:00 AM EST PACE Home Care / PACE Home Visit [facility]ien [facility] [address] [place] [phone] [place] 04/21/2025 10:00 AM EST P[facility] Home Care / PACE Home Visit Vivien DAV[facility]PORT [facility] [address] [place] [phone] [place] 05/14/2025 9:00 AM EST Clinical Support Vivien LIFE [facility] [address] [place] [phone] 10/16/2025 11:20 AM EDT Office Visit Gastroenterology - [address] [place] [facility] [address] [place] [phone] Carmen Alaniz, [place] [address] [address] documented as of this encounter Visit Diagnoses Not on filedocumented in this encounter Care Teams Phosphorus Processing Supervisor Relationship Specialty Start Date End Date Eve German NP [address] [place] [address] PCP - General Family Medicine 04/12/24 documented as of this encounter
--- OUTSIDE RECORDS SUMMARY | 2025-02-26 12:40 | XMS_ITS ---
Author Organization [facility] 299 [facility] Address [address] [place] [address] Phone Care Team Providers Care Sign Erector And Repairer Name Role Phone Eve German PRODUCT SUPPORT SALES REPRESENTATIVE Primary Care Provider [phone] Program of All-Inclusive Care for the Elderly Status:Enrolled (Active) Start date:11/10/2022 Enrollment date:11/10/2022 Related social drivers of health:Housing Instability, Financial Risk, Transportation, Social Isolation, Food Risk Related service episodes:[facility] (Active) Overview This episode will track PACE documentation. Case Team Name Relationship Phone Anais Guan Recreational Therapist Carlota Royal RN Laboratory Assistant Janet Worthy RN Laboratory Assistant Francois Gonzalez OT Occupational Therapist Gregory Santoyo RD Dietitian Robert Alcaraz PT Physical Therapist Hunter Sahu WARP PLACER Desktop Architect Meme Lane RN Laboratory Assistant Aziza Fitzgerald Desktop Architect Christelle Mancia [facility] Desktop Architect Arnold Santos Spiritual Care Anne De Santiago OT Occupational Therapist Enma Duckworth RELEASE ENGINEER Desktop Architect Sj Moser PT Physical Therapist Yenni Coombs RN Registered Nurse Tess Saenz MD Primary Care Provider [phone] Continued Care and Services Coordination
--- OUTSIDE RECORDS SUMMARY | 2025-02-26 12:40 | XMS_ITS | Patient Health Record ---
Author Organization [facility] [place] Address [address] [facility] [address] [place] [address] Support Name Relationship Address Phone MARIUM CLAY Guarantor Unknown [phone] Reason For Referral No Information Plan Of Treatment No Information Insurance Providers Payer Name Payer Address Payer Phone Subscriber Number Group Number Insured Name Patient Relationship to Insured Coverage Start Date Coverage End Date A [employer] [address] [place] [address] [id number] MARIUM CLAY Self - patient is the insured [employer] [address] [place] [address] [id number] MARIUM CLAY Self - patient is the insured
--- OUTSIDE RECORDS SUMMARY | 2025-02-26 12:40 | XMS_ITS | Clinical Summary ---
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 Report Status:Signed EXAM: [facility] Screening Digital EXAM DATE AND TIME: 09/25/2023 2:05 PM HISTORY: Screening. COMPARISON: 11/08/21, 12/05/18, 04/23/17 ([facility],[place], [place]) TECHNIQUE: Bilateral digital breast tomosynthesis was performed in the CCand MLO projections. Computer aided detection with iCAD ProFound AI 3D 3.1was employed. TISSUE DENSITY: b. There [...] 09/25/23 1449 Sign date/Time: 09/25/23 1450 Makayla Dobson MD IMG BI PROCEDURES Final Re sult * Lipid panel (09/03/2023) LDL/HDL Ratio 3 <=5 Triglycerides 96 <=150 mg/dL Cholesterol 174 <=200 mg/dL HDL 70 >=50 mg/dL LDL Cholesterol 85 <=100 mg/dL Blood Venous blood specimen / Unknown Historical Provider LAB BLOOD ORDERABLES Teena l Result from Last 3 Months or Most Recently Relevant to Health Maintenance Insurance [facility] CLAIMS ADJUDICATION LILY MCDANIEL [id number] * Guarantor: [employer] Account Type Relation to Patient Date of Phone Billing Address DAVID HERNANDEZ LILY [address] [id number] [facility] Advance Directives Documents on File Type Date 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 Care Teams Respiratory Care Program Director Relationship Specialty Start Date End Date Christiano German NP [address] [place] [phone] PCP - General Family Medicine 04/12/24
--- OUTSIDE RECORDS SUMMARY | 2025-02-26 12:40 | XMS_ITS | Encounter Summary ---
Author Organization [facility] Address [address] [place] [address] Care Team Providers Care New Car Get Ready Mechanic Name Role Phone Eve German SYSTEMS PROJECT MANAGER Primary Care Provider Encounter Details Date Type Department Care Team (Late st Contact Info) Description 03/21/2024 Telephone Gastroenterology - [address] [place] [address] Keiry Flores [place] Social History [...] name of pharmacy : [facility]: [phone], for her mesalamine 90 day supply documented in this encounter Plan of Treatment Upcoming Encounters Date Type Department Care Team (Late st Contact Info) Description 03/03/2025 10:00 AM EST [facility] [address] [place] [address] [place] 03/03/2025 2:20 PM EST Clinical Support [facility] [place] [address] [place] [address] 03/10/2025 10:00 AM EST [facility] / [facility] [place] [facility] [address] [place] [address] [place], [place] 03/17/2025 10:00 AM EST [facility] Home [facility] / [facility] [place] [facility] [address] [place] [address] [place], [place] 03/24/2025 10:00 AM EST [facility] Home [facility] / [facility] [place] [facility] [address] [place] [address] [place], [place] 03/31/2025 10:00 AM EST [facility] Home [facility] / [facility] [place] [facility] [address] [place] [phone] [place] 04/07/2025 10:00 AM EST [facility] / [facility] [place] [facility] [address] [place] [phone] [place], [place] 04/14/2025 10:00 AM EST [facility] Home [facility] / [facility] [place] [facility] [address] [place] [phone] [place], [place] 04/21/2025 10:00 AM EST [facility] Home [facility] / [facility] [address] [place] [address] [place], [place] 05/14/2025 9:00 AM EST Clinical Support [facility] [place] [address] [place] [address] 10/16/2025 11:20 AM EDT Office Visit Gastroenterology - [address] [place] [address] Carmen Alaniz NP [address] [place] [address] documented as of this encounter Visit Diagnoses Not on filedocumented in this encounter Care Teams New Car Get Ready Mechanic Relationship Specialty Start Date End Date Eve German NP [address] [address] PCP - General Family Medicine 04/12/24 documented as of this encounter
== END 2025-02-26 10:17 | disposition home or self-care (01) ==
LOC: HO.NEURO 10:16
PROVIDERS: PCP Nurse Practitioner Family; Visit Provider Psychiatry & Neurology Neurology
DX: G40.909 Epilepsy, unspecified, not intractable, without status epilepticus (principal)
CPT/HCPCS: 95819

== ENCOUNTER → 2025-02-26 11:45 | Outpatient (BNV) | payer OTHER, SELFPAY | PROVIDERS: PCP Nurse Practitioner Family; Visit Provider Psychiatry & Neurology Neurology | DX: G40.909 Epilepsy, unspecified, not intractable, without status epilepticus (principal) | CPT/HCPCS: 95819 ==

== ENCOUNTER 2025-03-03 14:28 | Outpatient (AMB) | payer OTHER, SELFPAY ==
--- OUTSIDE RECORDS SUMMARY | 2025-02-26 10:30 | XMS_ITS | Encounter Summary ---
Author Organization [facility] Address [address] [place] [address] Care Team Providers Care Management Developer Name Role Phone Eve German CAN MAKER Primary Care Provider [phone] Reason for Visit * Imaging (Routine) - Authorized Specialty Diagnoses / Procedures Referred By Giuseppe zepeda Referred To Contact Neurology Diagnoses EEG Procedures EXTERNAL VISIT Eve German NP 200 [facility] [address] [place] [address] Phone: tel: fax: [facility] [address] Phone: tel: Referral ID Status Reason Start Date Expiration Date V isits Requested Visits Authorized [id number] Authorized 02/26/2025 02/26/2026 1 1 Encounter Details Date Type Department Care Team (Late st Contact Info) Description 02/26/2025 10:30 AM EST [facility] External Visit [place] 200 [place] [address] Social History Tobacco Use Types [...] Care Team (Late st Contact Info) Description 03/10/2025 10:00 AM EST [facility] Home Care / [facility] [place] [facility] [address] [place] [phone] [facility] [place] 03/17/2025 10:00 AM EST P[facility] Home Care / [facility] Home Visit [facility] [place] [facility] [address] [place] [phone] [facility] [place] 03/24/2025 10:00 AM EST PACE Home Care / [facility] Home Visit [facility] [place] [facility] [address] [place] [phone] [facility] [place] 03/31/2025 10:00 AM EST PACE Home Care / [facility] Home Visit [facility] [place] [facility] [address] [place] [phone] [facility] 04/07/2025 10:00 AM EST PACE Home Care / [facility] Home Visit [facility] [place] [facility] [address] [place] [phone] [facility] [place] 04/14/2025 10:00 AM EST PACE Home Care / [facility] Home Visit [facility] [place] [facility] [address] [place] [phone] [facility] [place] 04/21/2025 10:00 AM EST PACE Home Care / [facility] Home Visit [facility] [place] [facility] [address] [place] [phone] [facility] [place] 04/28/2025 10:00 AM EST PACE Home Care / [facility] Home Visit [facility] [place] [facility] [address] [place] [address], [place] [phone] Janet Laird 05/14/2025 9:00 AM EST Clinical Support Vivien [place] 200 [place] [address] 10/16/2025 11:20 AM EDT Office Visit Gastroenterology - [address] [phone] Carmen Alaniz NP [address] [address] documented as of this encounter Visit Diagnoses Not on filedocumented in this encounter Additional Health Concerns Assessment Noted Time PHQ-9 Depression Total Score: 3 09/10/19 10:35 AM EDT documented as of this encounter Care Teams Management Developer Relationship Specialty Start Date End Date Eve German NP [address] [place] [address] PCP - General Family Medicine 04/12/24 documented as of this encounter
--- OUTSIDE RECORDS SUMMARY | 2025-02-26 12:00 | XMS_ITS | Encounter Summary ---
Author Organization [facility] Address [address] [place] [address] Care Team Providers Care Lock Plater Name Role Phone Eve German COFFEE MAKER Primary Care Provider [phone] Encounter Details Date Type Department Care Team (Late st Contact Info) Description 02/26/2025 12:00 PM EST [facility] / PACE Home Visit Vivien DAVENPORT [facility] [address] [place] [phone] Janet Laird Social History Tobacco Use Types Packs/Day Years [...] MA [facility] [address] [place] [phone] [place] 03/17/2025 10:00 AM EST [facility] Home Care / PACE Home Visit Vivien DAVENPORT [facility] [address] [place] [phone] [place], [place] 03/24/2025 10:00 AM EST P[facility] Home Care / PACE Home Visit Vivien DAVENPORT [facility] [address] [place] [phone] [place], [place] 03/31/2025 10:00 AM EST P[facility] Home Care / PACE Home Visit Vivien DAVENPORT [facility] [address] [place] [phone] [place], [place] 04/07/2025 10:00 AM EST [facility] Home Care / PACE Home Visit Vivien DAVENPORT [facility] [address] [place] [phone] [place], [place] 04/14/2025 10:00 AM EST [facility] Home Care / PACE Home Visit Vivien DAVENPORT [facility] [address] [place] [phone] [place], [place] 04/21/2025 10:00 AM EST [facility] Home Care / PACE Home Visit Vivien DAVENPORT MA [facility] [address] [place] [phone] [place], [place] 04/28/2025 10:00 AM EST [facility] Home Care / PACE Home Visit Vivien DAVENPORT [facility] [address] [place] [phone] [place], [place] 05/14/2025 9:00 AM EST Clinical Support Vivein DAVENPORT MA [address] [place] [address] 10/16/2025 11:20 AM EDT Office Visit Gastroenterology - [address] [phone] Carmen Alaniz, [place] [address] [address] documented as of this encounter Visit Diagnoses Not on filedocumented in this encounter Additional Health Concerns Assessment Noted Time PHQ-9 Depression Total Score: 3 09/10/19 25 10:35 AM EDT documented as of this encounter Care Teams Lock Plater Relationship Specialty Start Date End Date Eve German NP [address] [address] PCP - General Family Medicine 04/12/24 documented as of this encounter
--- OUTSIDE RECORDS SUMMARY | 2025-02-27 10:30 | XMS_ITS | Encounter Summary ---
Author Organization [facility] Address [address] [place] [address] Care Team Providers Care Rn X Ray Name Role Phone Eve German DIALYSIS TECH Primary Care Provider [phone] Encounter Details Date Type Department Care Team (Late st Contact Info) Description 02/27/2025 10:30 AM EST Treatment [facility] [address] [place] [address] Breanna Jaquez PTA Social History [...] Progress Notes * Breanna Jaquez PTA - 02/27/2025 10:30 AM EST Par seen to trial new orthofeet Relay style shoe with memory foam inserts. Shoes with good fit however noted poor lateral support. Added arch boosters with par still presenting with increase pronation. Par continue to wear Biofit shoe size 10 XX-wide which is an orthofeet shoe. Trialed gel inserts however par reported more comfort with memory foam original shoe insert. Relay shoes to be returned a nd will re order orthofeet Roam style shoe. Par in agreement and reports understanding. documented in this encounter Plan of Treatment Upcoming Encounters Date Type Department Care Team (Late st Contact Info) Description 03/10/2025 10:00 AM EST [facility] [place] [facility] [address] [place] [phone] [place] 03/17/2025 10:00 AM EST [facility] Home [facility] / [facility] [place] [facility] [address] [place] [phone] [place] 03/24/2025 10:00 AM EST [facility] Home [facility] / [facility] [place] [facility] [address] [place] [phone] [facility] [place] 03/31/2025 10:00 AM EST [facility] Home [facility] / [facility] [place] [facility] [address] [place] [phone] [place], [place] 04/07/2025 10:00 AM EST [facility] Home [facility] / [facility] [place] [facility] [address] [place] [phone] [place], [place] 04/14/2025 10:00 AM EST [facility] / [facility] [place] [facility] [address] [place] [phone] [place], [place] 04/21/2025 10:00 AM EST [facility] / [facility] [place] [facility] [address] [place] [phone] [place] 04/28/2025 10:00 AM EST [facility] Home Care / P[facility] Home Visit [facility] [place] [facility] [address] [place] [address] [place] 05/14/2025 9:00 AM EST Clinical Support [facility] [place] [address] [place] [address] 10/16/2025 11:20 AM EDT Office Visit Gastroenterology - [address] [facility] [address] [place] [phone] Carmen Alaniz NP [address] [facility] [address] [facility] [address] [place] [address] documented as of this encounter Visit Diagnoses Not on filedocumented in this encounter Additional Health Concerns Assessment Noted Time PHQ-9 Depression Total Score: 3 09/10/19 10:35 AM EDT documented as of this encounter Care Teams Rn X Ray Relationship Specialty Start Date End Date Eve German NP 200 [facility] [place] [address] [place] [address] PCP - General Family Medicine 04/12/24 documented as of this encounter
--- OUTSIDE RECORDS SUMMARY | 2025-03-02 14:00 | XMS_ITS | Encounter Summary ---
Author Organization [facility] Address [address] [place] [address] Care Team Providers Care Pumpman Name Role Phone Eve German MANAGER PHOTOGRAPHY Primary Care Provider Encounter Details Date Type Department Care Team (Late st Contact Info) Description 03/02/2025 2:00 PM EST Clinical Support [facility] [address] [place] [address] Yenni Coombs RN Social History Tobacco Use Types Packs/Day [...] as of this encounter Progress Notes * Yenni Coombs RN - 03/02/2025 2:00 PM EST Par seen in clinic for lab draw which was successfully drawn from left AC. Par tolerated well. Labsto be sent out. documented in this encounter Plan of Treatment Upcoming Encounters Date Type Department Care Team (Late st Contact Info) Description 03/10/2025 10:00 AM EST P[facility] Home Care / [facility] Home [facility] [place] [facility] [address] [place] [phone] [place], [place] 03/17/2025 10:00 AM EST [facility] Home [facility] / [facility] Home Visit [facility] [place] [facility] [address] [place] [phone] [place], [place] 03/24/2025 10:00 AM EST P[facility] Home Care / [facility] Home Visit [facility] [place] [facility] [address] [place] [phone] [place], [place] 03/31/2025 10:00 AM EST [facility] Home [facility] / [facility] Home Visit [facility] [place] [facility] [address] [place] [phone] [place], [place] 04/07/2025 10:00 AM EST [facility] Home [facility] / [facility] Home Visit [facility] [place] [facility] [address] [place] [phone] [place], [place] 04/14/2025 10:00 AM EST P[facility] Home Care / [facility] Home Visit [facility] [place] [facility] [address] [place] [phone] [place], [place] 04/21/2025 10:00 AM EST P[facility] Home [facility] / [facility] Home Visit [facility] [place] [facility] [address] [place] [phone] [place], [place] 04/28/2025 10:00 AM EST P[facility] Home Care / [facility] Home Visit [facility] [place] [facility] [address] [place] [phone] [place], [place] 05/14/2025 9:00 AM EST Clinical Support [facility] [address] [place] [phone] 10/16/2025 11:20 AM EDT Office Visit Gastroenterology - [address] [facility] [address] [place] [address] Carmen Alaniz NP [address] [address] documented as of this encounter Visit Diagnoses Not on filedocumented in this encounter Additional Health Concerns Assessment Noted Time PHQ-9 Depression Total Score: 3 09/10/19 10:35 AM EDT documented as of this encounter Care Teams Pumpman Relationship Specialty Start Date End Date Eve German NP [address] [address] PCP - General Family Medicine 04/12/24 documented as of this encounter
--- OUTSIDE RECORDS SUMMARY | 2025-03-03 14:20 | XMS_ITS | Encounter Summary ---
Author Organization [facility] Address [address] [place] [address] Care Team Providers Care Case Mgr Name Role Phone Eve German HOUSE WIRER Primary Care Provider [phone] Reason for Visit * Consultation (Routine) - Authorized Specialty Diagnoses / Procedures Referred By iGuseppe t Referred To Contact Neurology Diagnoses [facility] Procedures EXTERNAL VISIT Eve German NP 200 [facility] [address] [place] [address] Phone: tel: fax: [facility] [address] Phone: tel: Referral ID Status Reason Start Date Expiration Date V isits Requested Visits Authorized [id number] Authorized 03/03/2025 03/03/2026 1 1 Encounter Details Date Type Department Care Team (Late st Contact Info) Description 03/03/2025 2:20 PM EST [facility] External Visit [facility] [place] [address] [place] [phone] Social History Tobacco Use Types Packs/Day Years [...] [place] [facility] [address] [place] [phone] [place] 03/17/2025 10:00 AM EST [facility] Home [facility] / [facility] [place] [facility] [address] [place] [phone] [place] 03/24/2025 10:00 AM EST [facility] Home [facility] / [facility] [place] [facility] [address] [place] [phone] [place], [place] 03/31/2025 10:00 AM EST [facility] Home [facility] / [facility] [place] [facility] [address] [place] [phone] [place], [place] 04/07/2025 10:00 AM EST [facility] Home [facility] / [facility] [place] [facility] [address] [place] [phone] [place] 04/14/2025 10:00 AM EST [facility] Home [facility] / [facility] [place] [facility] [address] [place] [phone] [place], [place] 04/21/2025 10:00 AM EST [facility] Home [facility] / [facility] [place] [facility] [address] [place] [phone] [place] 04/28/2025 10:00 AM EST [facility] Home [facility] / [facility] [place] [facility] [address] [place] [address] Janet Laird 05/14/2025 9:00 AM EST Clinical Support [facility] [place] [address] [place] [address] 10/16/2025 11:20 AM EDT Office Visit Gastroenterology - [address] [phone] Carmen Alaniz NP [address] [address] documented as of this encounter Visit Diagnoses Not on filedocumented in this encounter Additional Health Concerns Assessment Noted Time PHQ-9 Depression Total Score: 3 09/10/19 10:35 AM EDT documented as of this encounter Care Teams Case Mgr Relationship Specialty Start Date End Date Eve German NP [address] [address] PCP - General Family Medicine 04/12/24 documented as of this encounter
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
--- OUTSIDE RECORDS SUMMARY | 2025-03-03 15:45 | XMS_ITS | Encounter Summary ---
Author Organization [facility] Address [address] [place] [address] Care Team Providers Care Quality Assurance Practice Manager Name Role Phone Eve German TAR HEEL Primary Care Provider Encounter Details Date Type Department Care Team (Late st Contact Info) Description 07/22/2024 Health Home Core Service Vivien [facility] [facility] [address] [place] [phone] Marian Savage RN Social History Tobacco Use [...] In Home Nursing and Aide Services [address] [place] [phone] Janet Laird 03/17/2025 10:00 AM EST [facility] Home Care / PACE Home Visit Vivien DAVENPORT HUM[place]ERTO In [facility] Services [address] [place] [phone] [facility], [place] 03/24/2025 10:00 AM EST P[facility] Home Care / PACE Home Visit Vivien DAVENPORT [place] In [facility] [address] [place] [phone] [facility], [place] 03/31/2025 10:00 AM EST PACE Home Care / PACE Home Visit Vivien [facility] [place] In [facility] A[facility] Services [address] [place] [phone] [facility], [place] 04/07/2025 10:00 AM EST PACE Home Care / [facility] Home Visit [facility]ien [facility] [place] In [facility] [address] [place] [phone] [facility], [place] 04/14/2025 10:00 AM EST PACE Home Care / PACE Home Visit Vivien DAVENPORT [place] In [facility] [address] [place] [phone] [facility], [place] 04/21/2025 10:00 AM EST PACE Home Care / [facility] Home Visit [facility]ien [facility] [place] In [facility] Services [address] [place] [phone] [facility] [place] 04/28/2025 10:00 AM EST PACE Home Care / PACE Home Visit Vivien DAVENPORT [place] In [facility] [address] [place] [phone] [facility] [place] 05/14/2025 9:00 AM EST Clinical Support Vivien DAVENPORT [place] [address] [place] [address] 10/16/2025 11:20 AM EDT Office Visit Gastroenterology - [address] [phone] Carmen Alaniz NP [address] [phone] documented as of this encounter Visit Diagnoses Not on filedocumented in this encounter Care Teams Quality Assurance Practice Manager Relationship Specialty Start Date End Date Eve German NP [address] [address] PCP - General Family Medicine 04/12/24 documented as of this encounter
--- OUTSIDE RECORDS SUMMARY | 2025-03-03 15:45 | XMS_ITS | Patient Health Record ---
Author Organization [facility] [place] Address [address] [facility] [address] [place] [address] Support Name Relationship Address Phone MARIUM CLAY Guarantor Unknown [phone] Reason For Referral No Information Plan Of Treatment No Information Insurance Providers Payer Name Payer Address Payer Phone Subscriber Number Group Number Insured Name Patient Relationship to Insured Coverage Start Date Coverage End Date A [employer] [address] [place] [address] [id number] MARIUM CLAY Self - patient is the insured [employer] [address] [place] [address] [id number] MARIUM CLAY Self - patient is the insured
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
--- OUTSIDE RECORDS SUMMARY | 2025-03-03 15:45 | XMS_ITS ---
Author Organization [facility] [address] [facility] Address [address] [place] [address] Phone Care Team Providers Care Adventure Therapist Name Role Phone Eve German PRESIDENTIAL HELICOPTER CREW CHIEF Primary Care Provider [facility] Status:Enrolled (Active) Start date:05/10/2024 Related program episode:Program of All-Inclusive Care for the Elderly (Active) Case Team Name Relationship Phone Eve German PRESIDENTIAL HELICOPTER CREW CHIEF(Responsible Staff) Nurse Prac titioner [phone] Continued Care and Services Coordination
--- OUTSIDE RECORDS SUMMARY | 2025-03-03 15:45 | XMS_ITS ---
Author Organization [facility] [address] [facility] Address [address] [place] [address] Phone Care Team Providers Care Maid Supervisor Name Role Phone Eve German JUNIOR NETWORK ENGINEER Primary Care Provider [phone] Program of All-Inclusive Care for the Elderly Status:Enrolled (Active) Start date:11/10/2022 Enrollment date:11/10/2022 Related social drivers of health:Housing Instability, Financial Risk, Transportation, Social Isolation, Food Risk Related service episodes:[facility] (Active) Overview This episode will track [facility]ACE documentation. Case Team Name Relationship Phone Anais Guan Recreational Therapist Carlota Royal RN Telegraph And Teletype Operator Janet Worthy RN Telegraph And Teletype Operator Francois Gonzalez OT Occupational Therapist Gregory Santoyo RD Dietitian Robert Alcaraz PT Physical Therapist Hunter [employer] DYNAMICS DEVELOPER Theatrical Performer Meme Lane RN Telegraph And Teletype Operator Aziza Fitzgerald Theatrical Performer Christelle Mancia [facility] Theatrical Performer Arnold Santos Spiritual Care Anne De Santiago OT Occupational Therapist Enma Duckworth TANK WAGON OPERATOR Theatrical Performer Sj Moser PT Physical Therapist Yenni Coombs RN Registered Nurse Tess Saenz MD Primary Care Provider [phone] Continued Care and Services Coordination
--- OUTSIDE RECORDS SUMMARY | 2025-03-03 15:45 | XMS_ITS | Encounter Summary ---
Author Organization [facility] Address [address] [place] [address] Care Team Providers Care Animal Geneticist Name Role Phone Eve German TAG STRINGER Primary Care Provider [phone] Encounter Details Date Type Department Care Team (Late st Contact Info) Description 03/21/2024 Telephone Gastroenterology - [address] [place] [address] Keiry Flores [place] Social History [...] name of pharmacy : [facility]: [phone], for her mesalamine 90 day supply documented in this encounter Plan of Treatment Upcoming Encounters Date Type Department Care Team (Late st Contact Info) Description 03/10/2025 10:00 AM EST [facility] / [facility] Visit Vivien DAVENPORT [facility] [address] [place] [address] [place] 03/17/2025 10:00 AM EST [facility] / [facility] Home Visit Vivien DAV[facility] [address] [place] [address] [place], [place] 03/24/2025 10:00 AM EST [facility] / [facility] Home Visit Vivien DAV[facility] [facility] [address] [place] [address] [place] [place] 03/31/2025 10:00 AM EST [facility] / [facility] Home Visit Vivien DAV[facility] [facility] [address] [place] [phone] [place] [place] 04/07/2025 10:00 AM EST [facility] / [facility] Home Visit Vivien DAVEN[place] [facility] [address] [place] [address] [place], [place] 04/14/2025 10:00 AM EST [facility] / [facility] Home Visit Vivien DAVENPORT [place] [facility] [address] [place] [phone] [place] [place] 04/21/2025 10:00 AM EST [facility] / [facility] Home Visit Vivien DAV[facility]PORT [place] [facility] [address] [place] [phone] [place] [place] 04/28/2025 10:00 AM EST [facility] / [facility] Home Visit Vivien DAV[place] [facility] [address] [place] [phone] [place] [place] 05/14/2025 9:00 AM EST Clinical Support Vivien DAVENPORT [place] [address] [place] [address] 10/16/2025 11:20 AM EDT Office Visit Gastroenterology - [address] [phone] Carmen Alaniz NP [address] [place] [address] documented as of this encounter Visit Diagnoses Not on filedocumented in this encounter Care Teams Animal Geneticist Relationship Specialty Start Date End Date Eve German NP [address] [address] PCP - General Family Medicine 04/12/24 documented as of this encounter
== END 2025-03-03 14:50 | disposition home or self-care (01) ==
LOC: HO.HSM 14:29
PROVIDERS: PCP Nurse Practitioner Family; Visit Provider Psychiatry & Neurology Neurology
DX: G40.909 Epilepsy, unspecified, not intractable, without status epilepticus (principal); G93.89 Other specified disorders of brain; E85.4 Organ-limited amyloidosis; I68.0 Cerebral amyloid angiopathy
CPT/HCPCS: 99214

== ENCOUNTER → 2025-03-03 14:28 | Outpatient (BNVA) | payer OTHER, SELFPAY | PROVIDERS: PCP Nurse Practitioner Family; Visit Provider Psychiatry & Neurology Neurology | DX: G40.909 Epilepsy, unspecified, not intractable, without status epilepticus (principal); G93.89 Other specified disorders of brain; E85.4 Organ-limited amyloidosis; I68.0 Cerebral amyloid angiopathy; G31.9 Degenerative disease of nervous system, unspecified; F02.B0 Dementia in other diseases classified elsewhere, moderate, without behavioral disturbance, psychotic disturbance, mood disturbance, and anxiety; R26.89 Other abnormalities of gait and mobility; Z79.899 Other long term (current) drug therapy | CPT/HCPCS: 99212 ==